=== PATIENT | male | born 2000 | race Caucasian/White ===

== ENCOUNTER 2020-09-18 23:31 | Inpatient (IN) | payer OTHER ==
[~2020-09-18] VITALS: Ht 162.6 cm; Wt 63.4 kg
[2020-09-19 02:16] LABS: HEMOGLOBIN 17.3 g/dl (13.5-17.5); MEAN CORPUSCULAR HEMOGLOBIN 29.8 pg (27.0-33.0); MEAN CORPUSCULAR HGB CONC 33.3 g/dl (32.0-36.5); MEAN CORPUSCULAR VOLUME 89.7 fl (80.0-96.0); PLATELET COUNT, AUTOMATED 186 10^3/uL (150-450)
[2020-09-19 02:55] LABS: AMPHETAMINES LEVEL URINE NEGATIVE (NEGATIVE); BARBITURATES URINE NEGATIVE (NEGATIVE); BENZODIAZEPINES URINE NEGATIVE (NEGATIVE); CANNABINOIDS URINE NEGATIVE (NEGATIVE); COCAINE METABOLITE URINE POSITIVE (NEGATIVE); METHADONE URINE NEGATIVE (NEGATIVE); OPIATES URINE NEGATIVE (NEGATIVE); PHENCYCLIDINE URINE NEGATIVE (NEGATIVE)
[2020-09-19 03:21] LABS: ACETAMINOPHEN LEVEL < 2.0 UG/ML (10.0-30.0); ALBUMIN 4.4 GM/DL (3.2-5.2); ALT/SGPT 27 U/L (12-78); BILIRUBIN,DIRECT 0.1 MG/DL (0.0-0.2); BILIRUBIN,TOTAL 0.5 MG/DL (0.2-1.0); BLOOD UREA NITROGEN 12 MG/DL (7-18); CALCIUM LEVEL 9.2 MG/DL (8.5-10.1); CARBON DIOXIDE LEVEL 33 MEQ/L (21-32); CHLORIDE LEVEL 105 MEQ/L (98-107); CK-MB VALUE MASS 8.8 NG/ML (<3.6); CPK CREATINE PHOSPHOKINASE 267 U/L (39-308); CREATININE FOR GFR 1.12 MG/DL (0.70-1.30); ETHYL ALCOHOL (ETHANOL) < 0.003 % (0.000-0.010); GLUCOSE, FASTING 94 MG/DL (70-100); POTASSIUM SERUM 4.4 MEQ/L (3.5-5.1); SALICYLATE LEVEL < 1.7 MG/DL (5.0-30.0); SODIUM LEVEL 140 MEQ/L (136-145); TOTAL PROTEIN 7.7 GM/DL (6.4-8.2); TROPONIN I 0.02 NG/ML (< 0.10)
--- NOTE | 2020-09-19 09:28 | ECGEPIP ---
[facility] - ED Test Date: 2020-09-19 Pat Name: SARAH TORRES Department: Room: - Gender: Male Hospital Admitting Clerk: BILL : 2000 Requested By: EDDI Peña Order Number: [id number] Reading MD: Amaury Stanley Measurements Intervals [place] Rate: 50 P: 42 CT: 124 QRS: 61 QRSD: 100 T: -87 QT: 444 QTc: 404 Interpretive Statements Sinus bradycardia Incomplete right bundle branch block ST elevation V1-[address] depression and deep T wave inversions, consider ischemia, Brugada Type 2, cocaine intoxication NO PRIORS FOR COMPARISON Electronically Signed on 09-19-2020 9:27:42 EDT by mAaury Stanley
--- NOTE | 2020-09-19 09:30 | ECGEPIP ---
[facility] - ED Test Date: 2020-09-19 Pat Name: SARAH TORRES Department: Room: - Gender: Male [employer] Assembler: AYAKA : 2000 Requested By: EDDI Peña Order Number: [id number] Reading MD: Amaury Stanley Measurements Intervals [place] Rate: 46 P: 53 ME: 130 QRS: 59 QRSD: 100 T: 265 QT: 496 QTc: 434 Interpretive Statements Sinus bradycardia ST elevation V1-[address] depressions and T wave inversions, consider ischemia, Brugada Type2, cocaine intoxication SIMILAR TO PRIOR ON SAME DATE Electronically Signed on 09-19-2020 9:30:17 EDT by Amaury Stanley
[2020-09-19] MEDS ORDERED: MAALOX 30 ML SUSP *UDC PO PRN (13:50)
[2020-09-19] MEDS ORDERED: hydrOXYzine 50 MG TAB PO PRN (13:50)
[2020-09-19] MEDS ORDERED: traZODone 50 MG TAB PO PRN (13:50)
[2020-09-19] MEDS ORDERED: MOM 30ML SUSPENSION UDC PO PRN (13:50)
[2020-09-19 17:59] VITALS: BP 132/74
[2020-09-20 06:46] VITALS: BP 118/48
[2020-09-20] MEDS: NICOTINE 21MG/24HR 1 EA TRANSDERMAL TD SCH (10:27)
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
[2020-09-20] MEDS: hydrOXYzine 50 MG TAB PO SCH ×2 (12:11→18:25)
[2020-09-20 20:07] VITALS: BP 145/65
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
[2020-09-20] MEDS: MIRTAZAPINE 7.5MG PER 1/2 TABLET PO SCH (21:00)
[2020-09-21] MEDS: hydrOXYzine 50 MG TAB PO SCH ×4 (06:04→17:27)
[2020-09-21 07:56] VITALS: BP 142/86
[2020-09-21] MEDS: NICOTINE 21MG/24HR 1 EA TRANSDERMAL TD SCH (08:40)
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
[2020-09-21 17:03] VITALS: BP 113/57
[2020-09-21] MEDS: MIRTAZAPINE 7.5MG PER 1/2 TABLET PO SCH (22:04)
[2020-09-22 06:00] VITALS: BP 117/69
[2020-09-22] MEDS: hydrOXYzine 50 MG TAB PO SCH ×4 (06:14→18:04)
[2020-09-22] MEDS: NICOTINE 21MG/24HR 1 EA TRANSDERMAL TD SCH (09:26)
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
[2020-09-22] MEDS: MIRTAZAPINE 7.5MG PER 1/2 TABLET PO SCH (21:55)
[2020-09-23] MEDS: hydrOXYzine 50 MG TAB PO SCH ×3 (00:36→11:42)
[2020-09-23 06:48] VITALS: BP 111/59
[2020-09-23] MEDS: NICOTINE 21MG/24HR 1 EA TRANSDERMAL TD SCH (09:21)
[2020-09-23] MEDS ORDERED: HYDR-3363 PO (10:51)
[2020-09-23] MEDS ORDERED: MIRT-62 PO (10:51)
[2020-09-23] MEDS ORDERED: NICO21PAT TD (10:51)
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
== END 2020-09-23 11:30 | disposition home or self-care (01) | DRG 881 ==
LOC: M ED 23:31 → M ED INP 09-19 13:47 → M PSY 09-19 17:50
PROVIDERS: ADMIT Psychiatry & Neurology Psychiatry; ATTEND Psychiatry & Neurology Psychiatry
DX: F32.9 Major depressive disorder, single episode, unspecified (principal); R45.851 Suicidal ideations; F17.290 Nicotine dependence, other tobacco product, uncomplicated; F10.10 Alcohol abuse, uncomplicated; F14.10 Cocaine abuse, uncomplicated; Z62.810 Personal history of physical and sexual abuse in childhood